=== PATIENT | female | born 2005 | race Caucasian/White ===

== ENCOUNTER 2025-08-23 19:18 | Emergency (ER) | payer MEDICAID ==
[~2025-08-23] VITALS: Ht 152.4 cm; Wt 59.0 kg
[2025-08-23 19:23] VITALS: O2SAT 100
[2025-08-23] MEDS: ONDANSETRON 4MG ODT PO ONE (20:51)
[2025-08-23] MEDS: MAGNESIUM/ALUMINUM HYDROXIDE/SIMETHICONE 30ML UDC PO ONE (20:51)
[2025-08-23] MEDS: FAMOTIDINE 20MG TABLET PO ONE (20:51)
[2025-08-23 21:12] LABS: BASOPHILS % 0.5 % (0.0-2.0); EOSINOPHILS % 1.6 % (0.0-5.0); HEMATOCRIT. 33.8 % (36.0-48.0); HEMOGLOBIN. 11.1 g/dL (12.0-16.0); LYMPHOCYTES % 23.2 % (20.0-50.0); MEAN PLATELET VOLUME 7.3 fl (7.4-10.4); MONOCYTES % 7.9 % (2.0-8.0); NEUTROPHILS % 66.8 % (40.0-76.0); PLATELET 451 x1000/uL (130-400); RED BLOOD CELL COUNT 3.85 mill/uL (4.2-5.4); RED CELL DISTRIBUTION WIDTH 14.9 % (11.6-14.6)
[2025-08-23 21:34] LABS: CREATININE 0.7 mg/dL (0.6-1.0)
[2025-08-23 21:35] LABS: UREA NITROGEN BLOOD 9 mg/dL (9-23)
[2025-08-23 21:36] LABS: ASPARTATE AMINOTRANSFERASE 162 IU/L (<34); HCG SCREEN NEGATIVE
[2025-08-23 21:37] LABS: BILIRUBIN DIRECT 0.2 mg/dL (<=3.0); BILIRUBIN TOTAL 0.6 mg/dL (0.1-1.0); PROTEIN TOTAL 7.1 g/dL (6.0-8.3)
[2025-08-23] MEDS: KETOROLAC 30MG/ML VIAL IM NR (23:23)
[2025-08-23 23:28] VITALS: BP 97/63; PULSE 62; RESP 17; TEMP 36.6; O2SAT 99
== END 2025-08-23 23:33 | disposition home or self-care (01) ==
LOC: ER 19:18
DX: K80.70 Calculus of gallbladder and bile duct without cholecystitis without obstruction (principal)
CPT/HCPCS: 99285; 76705; 80076; 80048; 84703; 83690; 85025; 36415; 96372; J1885; Q0162